=== PATIENT | male | born 1940 | race Caucasian/White ===

== ENCOUNTER 2024-09-18 13:20 | Emergency (ER) | payer OTHER ==
--- NOTE | 2024-09-18 15:35 | RAD REPORT ---
EXAM: Chest Single View HISTORY: COUGH COMPARISON: None. FINDINGS: LUNGS/PLEURA: The lungs are clear. No pleural effusions or pneumothorax. No pulmonary edema. MEDIASTINUM: The mediastinal silhouette is within normal limits. CARDIAC: Mild cardiomegaly. UPPER ABDOMEN: No significant abnormality. BONES: No acute fracture. Right shoulder arthroplasty.. LINES/TUBES/OTHER: N/A IMPRESSION: No evidence of acute cardiopulmonary disease.
--- NOTE | 2024-09-18 15:37 | RAD REPORT ---
EXAMINATION: Hip Right 2 View CLINICAL INDICATION: Male, 84 years old. PAIN RIGHT COMPARISON: No prior exam. FINDINGS: No acute fracture. No malalignment/dislocation. Mild right acetabular degenerative changes. Other: n/a IMPRESSION: No acute osseous abnormality.
--- NOTE | 2024-09-18 15:37 | RAD REPORT ---
EXAMINATION: Femur Right CLINICAL INDICATION: Male, 84 years old. PAIN RIGHT COMPARISON: No prior exam. FINDINGS: No acute fracture. No malalignment/dislocation. Mild right acetabular degenerative changes. Mild degenerative changes are also present at the knee. Other: n/a IMPRESSION: No acute osseous abnormality.
--- NOTE | 2024-09-18 15:37 | RAD REPORT ---
EXAMINATION: Pelvis CLINICAL INDICATION: Male, 84 years old. PAIN COMPARISON: No prior exam. FINDINGS: No acute fracture. No malalignment/dislocation. Degenerative changes are present in the lumbar spine. Mild bilateral acetabular degenerative changes. Other: n/a IMPRESSION: No acute osseous abnormality.
[2024-09-18 16:12] LABS: Absolute Basophils 0.1 K/uL (0-0.5); Absolute Eosinophils 0.2 K/uL (0-0.5); Absolute Lymphocytes (CBC) 2.1 K/uL (0.7-4.9); Absolute Monocytes 0.5 K/uL (0.1-1.3); Absolute Neutrophil 4.2 K/uL (1.8-8.0); Basophils % 0.7 % (0-1.3); Eosinophils % 2.5 % (0-4.4); Hematocrit 36.8 % (39.6-49.0); Lymphocytes % 29.8 % (15.3-44.8); MCH 32.6 pg (27.0-35.0); MCHC 32.6 g/dL (32.0-36.0); MCV 99.8 fL (80-100); MPV 9.3 fL (7.6-11.3); Monocytes % 7.7 % (3.3-12.3); Neutrophils % 59.3 % (41.7-73.7); Platelets 162 thou/uL (152-406); RBC Red Blood Cell Count 3.68 M/uL (4.33-5.43); Red Cell Distribution Width 14.5 % (12.1-15.2)
[2024-09-18 16:21] LABS: PT Prothrombin Time 12.1 SECONDS (9.4-12.5); Protime INR 1.08
[2024-09-18 16:33] LABS: AST/SGOT 14 U/L (15-37); Albumin 3.6 g/dL (3.4-5.0); Albumin/Globulin Ratio 1.3 (1.1-1.8); Alkaline Phosphatase 57 U/L (45-117); Anion Gap 8.3 mEq/L (5.0-15.0); BUN Blood Urea Nitrogen 36 mg/dL (7-18); Bicarbonate 25 mEq/L (21-32); Bilirubin Direct 0.2 mg/dL (0-0.2); Bilirubin Indirect, Calculated 0.5 mg/dL (0.2-0.8); Bilirubin Total 0.7 mg/dL (0.2-1.0); Globulin 2.8 g/dL (2.3-3.5); Glomerular Filtration Rate 49 ml/min (=/>90); Glucose Level 90 mg/dL (74-106); Magnesium 1.9 mg/dL (1.6-2.4); NT PRO-BNP 2730 pg/mL (<450); Potassium 4.3 mEq/L (3.5-5.1); Protein, Total 6.4 g/dL (6.4-8.2); Sodium Level 139 mEq/L (136-145); Troponin High Sensitivity 37.8 pg/mL (<58.9)
[2024-09-18 16:39] LABS: ALT/SGPT < 14 U/L (16-61)
--- NOTE | 2024-09-18 17:19 | ER ---
Nurse's Notes [facility] Name: Dillon Lubin Age: 84 yrs Sex: Male : 1940 Arrival Date: 09/18/2024 Time: 13:20 Bed 4 Private MD: Diagnosis: Pain in right hip;Pain in hip;History of falling Presentation: 09/18 13:42 Chief complaint: Worsening right hip pain after mechanical fall from standing hb yesterday. Tripped over blanket and fell into coffee table. Denies other injuries. Coronavirus screen: At this time, the client does not indicate any symptoms associated with coronavirus-19. Ebola Screen: No symptoms or risks identified at this time. Initial Sepsis Screen: Does the patient meet any 2 criteria? No. Patient's initial sepsis screen is negative. Does the patient have a suspected source of infection? No. Patient's initial sepsis screen is negative. Risk Assessment: Do you want to hurt yourself or someone else? Patient reports no desire to harm self or others. Onset of symptoms was September 17, 2024. 13:42 Method Of Arrival: Ambulatory 13:42 Acuity: CHANI 3 hb 15:45 Care prior to arrival: None. Mechanism of Injury: Fall. Trauma event details: Injury ll1 occurred in the [facility]. Trauma Activation: Not Applicable Physician: ED Physician; Name: ; Notified At: ; Arrived At: Physician: General Surgeon; Name: ; Notified At: ; Arrived At: Physician: Radiology; Name: ; Notified At: ; Arrived At: Physician: Respiratory; Name: ; Notified At: ; Arrived At: Physician: Lab; Name: ; Notified At: ; Arrived At: Historical: - Allergies: 13:43 No Known Allergies; hb - PMHx: 13:43 HTN; ND; SVT; Parkinson's disease; CHF; DM2; hb - PSHx: 13:43 Shoulder - Right x 3; Cataracts; hb 13:46 Back x 3; hb - Immunization history:: Adult Immunizations up to date. - Infectious Disease History:: Denies. - Immunization history: Last tetanus immunization: - up to date. - Social history:: Smoking status: Patient denies any tobacco usage or history of. - Family history:: not pertinent. Screenin:44 [facility] ED Fall Risk Assessment (Adult) History of falling in the last 3 months, ll1 including since admission Yes- single mechanical fall (1 pt) Confusion or Disorientation No (0 pts) Intoxicated or Sedated No (0 pts) Impaired Gait No (0 pts) Mobility Assist Device Used No (0 pt) Altered Elimination No (0 pt) Score/Fall Risk Level 0 - 2 = Low Risk Oriented to surroundings, Hourly rounding (assess needs \T\ fall precautionary measures) done. Abuse screen: Denies threats or abuse. Nutritional screening: No deficits noted. Tuberculosis screening: No symptoms or risk factors identified. Primary Survey: 15:44 NO uncontrolled hemorrhage observed. A: The client is awake and alert. The airway is ll1 patent. Breathing/Chest: Spontaneous respiratory effort, equal unlabored respirations, breath sounds clear bilaterally, regular pattern, symmetrical chest rise and fall. Circulation: No external hemorrhage present. Regular and strong central pulse, skin warm/dry/normal color. Disability Client is alert. Exposure/Environment: There is no evidence of uncontrolled external bleeding. 16:35 Reassessment Breathing: Spontaneous respiratory effort, equal unlabored respirations, ll1 breath sounds clear bilaterally, regular pattern with symmetrical chest rise and fall. Assessment: 15:42 General: Appears uncomfortable, Behavior is calm, cooperative, appropriate for age. ll1 Pain: Complains of pain in R hip Quality of pain is described as aching. Musculoskeletal: Circulation, motion, and sensation intact. Capillary refill < 3 seconds, in right toes. gait steady. Reports pain in R hip. 16:35 Reassessment: No changes from previously documented assessment. Patient and/or family ll1 updated on plan of care and expected duration. Pain level reassessed. Patient is alert, oriented x 3, equal unlabored respirations, skin warm/dry/pink. Vital Signs: 13:42 BP 132 / 74; Pulse 62; Resp 16; Temp 98.3(TE); Pulse Ox 100% on R/A; Weight 67.59 kg; hb Height 5 ft. 8 in. ; Pain 8/10; 16:34 BP 131 / 71; Pulse 61; Resp 16; Pulse Ox 100% ; ll1 13:42 Body Mass Index 22.66 (67.59 kg, 172.72 cm) hb 13:42 Pain Scale: Adult hb [place] Score: 15:45 Eye Response: spontaneous(4). Motor Response: obeys commands(6). Verbal Response: ll1 oriented(5). Total: 15. Trauma Score (Adult): 15:45 Eye Response: spontaneous(1); Verbal Response: oriented(1); Motor Response: obeys ll1 commands(2); Systolic BP: > 89 mm Hg(4); Respiratory Rate: 10 to 29 per min(4); [place] Score: 15; Trauma Score: 12 ED Course: 13:23 Patient arrived in ED. im 13:43 Triage completed. hb 13:45 Arm band placed on. hb 13:53 Juancho Jack MD is Attending Physician. alton 15:24 Anup Faulkner, CESAR is Primary Nurse. ll1 15:24 Patient placed in an exam room, on a stretcher. ll1 15:30 Initial lab(s) drawn, by me, sent to lab. Inserted saline lock: 22 gauge in right ll1 antecubital area, using aseptic technique. Blood collected. Flushed with 10 mL NS. 15:33 Hip Right 2 View XRAY In Process Unspecified. EDMS 15:33 XRAY Chest (1 view) In Process Unspecified. EDMS 15:33 Pelvis XRAY In Process Unspecified. EDMS 15:33 Femur Right XRAY In Process Unspecified. EDMS 15:35 EKG done, by ED staff, reviewed by Juancho Jack MD. ll1 15:45 Patient has correct armband on for positive identification. Bed in low position. ll1 Provided Education on: ER procedures and process. Cardiac monitoring not applicable on this patient. 15:46 Patient maintains SpO2 saturation greater than 95% on room air. ll1 16:35 No provider procedures requiring assistance completed. IV discontinued, intact, ll1 bleeding controlled, No redness/swelling at site. Pressure dressing applied. 16:36 Thermoregulation: n/a. ll1 Administered Medications: 16:34 Not Given (Patient Refused): ns 0.9% 1000 ml IV at 1000 ml once; to be given as a bolus ll1 over 60 minutes 16:34 Not Given (Patient Refused): fentanyl (pf)50 mcg IVP once ll1 16:34 Not Given (Patient Refused): ondansetron 4 mg IVP once; over 2 minutes ll1 Medication: 15:46 VIS not applicable for this client. ll1 Intake: 16:36 PO: 0ml; Total: 0ml. ll1 Output: 16:36 Urine: 0ml; Total: 0ml. ll1 Outcome: 16:35 Discharged to home ambulatory, ll1 16:35 Condition: stable 16:35 Discharge instructions given to patient, family, Instructed on discharge instructions, follow up and referral plans. Demonstrated understanding of instructions, follow-up care, left with verbal discharge instructions only 16:36 Patient's length of stay was not longer than 2 hours. ll1 17:18 Discharge ordered by . alton 17:20 Patient left the ED. ll1 17:53 Patient left the ED. eb Signatures: Dispatcher [employer] EDMS Juancho Jack MD MD cha Baxter, Heather, RN RN Yhaaira Mota Lynsay, RN RN [facility] Yessenia Jones Corrections: (The following items were deleted from the chart) 15:44 15:35 EKG done, by ED staff, reviewed by Shalonda Clarke PA-C [place] [id number]
--- NOTE | 2024-09-18 17:19 | EDPHYS ---
Physician Documentation [facility] Name: Dillon Lubin Age: 84 yrs Sex: Male : 1940 Arrival Date: 09/18/2024 Time: 13:20 Bed 4 Private MD: TRUE Physician Juancho Jack HPI: 09/18 17:14 This 84 yrs old Male presents to ER via Ambulatory with complaints of Hip alton Injury - right. 17:14 The patient or guardian reports decreased range of motion, an injury. that occurred at [facility], There is no obvious deformity. The complaints affect the right hip and right upper thigh. Onset: The symptoms/episode began/occurred 3 day(s) ago. Modifying factors: The symptoms are alleviated by remaining still, the symptoms are aggravated by any movement. Associated signs and symptoms: Loss of consciousness: the patient experienced no loss of consciousness. Severity of symptoms: At their worst the symptoms were mild, in the emergency department the symptoms are unchanged. The patient has not experienced similar symptoms in the past. Historical: - Allergies: 13:43 No Known Allergies; hb - PMHx: 13:43 HTN; NC; SVT; Parkinson's disease; CHF; DM2; hb - PSHx: 13:43 Shoulder - Right x 3; Cataracts; hb 13:46 Back x 3; hb - Immunization history:: Adult Immunizations up to date. - Infectious Disease History:: Denies. - Immunization history: Last tetanus immunization: - up to date. - Social history:: Smoking status: Patient denies any tobacco usage or history of. - Family history:: not pertinent. ROS: 17:14 Constitutional: Negative for fever, chills, and weight loss, Eyes: Negative for injury, alton pain, redness, and discharge, ENT: Negative for injury, pain, and discharge, Neck: Negative for injury, pain, and swelling, Cardiovascular: Negative for chest pain, palpitations, and edema, Respiratory: Negative for shortness of breath, cough, wheezing, and pleuritic chest pain, Abdomen/GI: Negative for abdominal pain, nausea, vomiting, diarrhea, and constipation, Back: Negative for injury and pain, : Negative for injury, bleeding, discharge, and swelling, Skin: Negative for injury, rash, and discoloration, Neuro: Negative for headache, weakness, numbness, tingling, and seizure, Psych: Negative for depression, anxiety, suicide ideation, homicidal ideation, and hallucinations, Allergy/Immunology: Negative for hives, rash, and allergies, Endocrine: Negative for neck swelling, polydipsia, polyuria, polyphagia, and marked weight changes, Hematologic/Lymphatic: Negative for swollen nodes, abnormal bleeding, and unusual bruising, 17:14 MS/extremity: Positive for injury or acute deformity, pain, of the right hip, Exam: 17:14 Constitutional: This is a well developed, well nourished patient who is awake, alert, alton and in no acute distress. Head/Face: Normocephalic, atraumatic. Eyes: Pupils equal round and reactive to light, extra-ocular motions intact. Lids and lashes normal. Conjunctiva and sclera are non-icteric and not injected. Cornea within normal limits. Periorbital areas with no swelling, redness, or edema. ENT: Nares patent. No nasal discharge, no septal abnormalities noted. Tympanic membranes are normal and external auditory canals are clear. Oropharynx with no redness, swelling, or masses, exudates, or evidence of obstruction, uvula midline. Mucous membranes moist. Neck: Trachea midline, no thyromegaly or masses palpated, and no cervical lymphadenopathy. Supple, full range of motion without nuchal rigidity, or vertebral point tenderness. No Meningismus. Chest/axilla: Normal chest wall appearance and motion. Nontender with no deformity. No lesions are appreciated. Cardiovascular: Regular rate and rhythm with a normal S1 and S2. No gallops, murmurs, or rubs. Normal PMI, no JVD. No pulse deficits. Respiratory: Lungs have equal breath sounds bilaterally, clear to auscultation and percussion. No rales, rhonchi or wheezes noted. No increased work of breathing, no retractions or nasal flaring. Abdomen/GI: Soft, non-tender, with normal bowel sounds. No distension or tympany. No guarding or rebound. No evidence of tenderness throughout. Back: No spinal tenderness. No costovertebral tenderness. Full range of motion. Skin: Warm, dry with normal turgor. Normal color with no rashes, no lesions, and no evidence of cellulitis. Neuro: Awake and alert, GCS 15, oriented to person, place, time, and situation. Cranial nerves II-XII grossly intact. Motor strength 5/5 in all extremities. Sensory grossly intact. Cerebellar exam normal. Normal gait. Psych: Awake, alert, with orientation to person, place and time. Behavior, mood, and affect are within normal limits. 17:14 Musculoskeletal/extremity: ROM: full active range of motion, full passive range of motion, in the right leg, Circulation is intact in all extremities. Sensation intact. Compartment Syndrome exam of affected extremity: is normal. Weight bearing: able to fully bear weight, DVT Exam: no swelling, no tenderness, negative Homans' sign noted on exam, no appreciated bluish discoloration, no erythema, no increased warmth, pain, 17:52 ECG was reviewed by the Attending Physician. [facility] Vital Signs: 13:42 BP 132 / 74; Pulse 62; Resp 16; Temp 98.3(TE); Pulse Ox 100% on R/A; Weight 67.59 kg; hb Height 5 ft. 8 in. ; Pain 8/10; 16:34 BP 131 / 71; Pulse 61; Resp 16; Pulse Ox 100% ; ll1 13:42 Body Mass Index 22.66 (67.59 kg, 172.72 cm) hb 13:42 Pain Scale: Adult hb [place] Com[place] Score: 15:45 Eye Response: spontaneous(4). Motor Response: obeys commands(6). Verbal Response: ll1 oriented(5). Total: 15. Trauma Score (Adult): 15:45 Eye Response: spontaneous(1); Verbal Response: oriented(1); Motor Response: obeys ll1 commands(2); Systolic BP: > 89 mm Hg(4); Respiratory Rate: 10 to 29 per min(4); [place] Score: 15; Trauma Score: 12 MDM: 13:53 Medical Screening Exam initiated [facility] 17:16 Differential diagnosis: hip fracture, intertrochanteric fracture, femoral neck alton fracture, femoral shaft fracture, bursitis, arthritis, strain. Data reviewed: vital signs, nurses notes, lab test result(s), EKG, radiologic studies, plain films. Consideration of Admission/Observation Escalation of care including admission/observation considered. I considered the following discharge prescriptions or medication management in the emergency department Medications were administered in the Emergency Department. See MAR. Independent interpretation of the following test(s) in the Emergency Department X-Ray: My interpretation is RIGHT HIP , PELVIS, FEMUR. Test considered but Not performed: Ultrasound NO DOPPLER. Historians other than the Patient: Daughter/Son: DAUGHTER. Care significantly affected by the following chronic conditions: Hypertension. 09/18 13:53 Order name: Basic Metabolic Panel; Complete Time: 17:08 [facility] 09/18 13:53 Order name: CBC with Diff; Complete Time: 17:08 [facility] 09/18 13:53 Order name: LFT's; Complete Time: 17:08 [facility] 09/18 13:53 Order name: Magnesium; Complete Time: 17:08 [facility] 09/18 13:53 Order name: NT PRO-BNP; Complete Time: 17:08 [facility] 09/18 13:53 Order name: PT-INR; Complete Time: 17:08 [facility] 09/18 13:53 Order name: Troponin HS; Complete Time: 17:08 [facility] 09/18 13:49 Order name: Hip Right 2 View XRAY; Complete Time: 17:08 [facility] 09/18 13:53 Order name: XRAY Chest (1 view); Complete Time: 17:08 [facility] 09/18 13:53 Order name: Pelvis XRAY; Complete Time: 17:08 [facility] 09/18 13:53 Order name: Femur Right XRAY; Complete Time: 17:08 [facility] 09/18 13:53 Order name: Cardiac monitoring; Complete Time: 15:39 [facility] 09/18 13:53 Order name: EKG - Nurse/Tech; Complete Time: 15:39 [facility] 09/18 13:53 Order name: IV Saline Lock; Complete Time: 15:32 [facility] 09/18 13:53 Order name: Labs collected and sent; Complete Time: 15:32 [facility] 09/18 13:53 Order name: O2 Per Protocol; Complete Time: 15:24 [facility] 09/18 13:53 Order name: O2 Sat Monitoring; Complete Time: 15:24 [facility] EC:52 Rate is 72 beats/min. Rhythm is regular. QRS [place] is Normal. MD interval is normal. QRS alton interval is normal. QT interval is normal. No Q waves. T waves are Normal. No ST changes noted. Clinical impression: Abnormal EKG without significant change and No evidence of ischemia. Interpreted by me. Reviewed by me. Administered Medications: 16:34 Not Given (Patient Refused): ns 0.9% 1000 ml IV at 1000 ml once; to be given as a bolus ll1 over 60 minutes 16:34 Not Given (Patient Refused): fentanyl (pf)50 mcg IVP once ll1 16:34 Not Given (Patient Refused): ondansetron 4 mg IVP once; over 2 minutes ll1 Disposition Summary: 09/18/24 17:18 Discharge Ordered Notes: Location: Home alton Problem: new alton Symptoms: have improved alton Condition: Stable alton Diagnosis - Pain in right hip alton - Pain in hip alton - History of falling alton Followup: alton - With: Private Physician - When: 2 - 3 days - Reason: Recheck today's complaints, Continuance of care, Re-evaluation by your physician Discharge Instructions: - Discharge Summary Sheet alton - Joint Pain alton - Arthritis alton - Musculoskeletal Pain alton - Hip Pain alton - Arthritis, [id number]-Iaxe alton Forms: - Medication Reconciliation Form alton - Antibiotic Education alton - Prescription Opioid Use alton - Patient Portal Instructions alton - Leadership Thank You Letter alton Signatures: Dispatcher [employer] EDJuancho Matthews MD MD cha Baxter, Heather, RN RN Anup Faulkner RN RN ll1 Corrections: (The following items were deleted from the chart) 13:53 13:53 Pelvis+RAD.RAD.BRZ ordered. EDMS EDMS 13:53 13:53 Femur Right+RAD.RAD.BRZ ordered. EDMS EDMS
[2024-09-18 17:49] VITALS: TEMP 98.3; O2SAT 100
[2024-09-18 17:51] VITALS: BP 131/71
--- NOTE | 2024-09-20 11:14 | EKG ---
Test Date: 2024-09-18 Test Time: 15:37:20 [employer] Consultant: LML MEASUREMENT RESULTS: Intervals: Rate: 72 AL: QRSD: 130 QT: 446 QTc: 488 [place]: P: AL: QRS: -37 T: 108 INTERPRETIVE STATEMENTS: Wide QRS rhythm with frequent premature ventricular complexes in a pattern of bigeminy Left axis deviation Nonspecific intraventricular block T wave abnormality, consider lateral ischemia Abnormal ECG No previous ECG available for comparison Electronically Signed On 09-20-24 11:10:02 PRODUCT ADVISOR by Uziel Waldron
== END 2024-09-18 17:53 | disposition home or self-care (01) ==
LOC: ER 13:20
DX: M25.551 Pain in right hip (principal); Z91.81 History of falling; G20.A1 Parkinson's disease without dyskinesia, without mention of fluctuations; I10 Essential (primary) hypertension; I50.9 Heart failure, unspecified; E11.9 Type 2 diabetes mellitus without complications
CPT/HCPCS: 36415; 71045; 72170; 80048; 80076; 83735; 83880; 84484; 85025; 85610; 93005; 99284